=== PATIENT | male | born 1945 ===

== ENCOUNTER 2017-01-12 21:53 | Emergency (ER) | payer MEDICARE, BC ==
--- NOTE | 2017-01-12 22:34 | C.PDOC ---
History Of Present Illness Patient is a 71 year old male who presents to the ER with a complaint of pain, swelling and redness to the right testicle for the past 3 days. Patient denies trauma, trouble passing urine, fever, chills or abdominal pain. Time Seen by Provider: 01/12/17 22:17 Chief Complaint (Nursing): Male Genitourinary History Per: Patient History/Exam Limitations: no limitations Onset/Duration Of Symptoms: Days (3) Current Symptoms Are (Timing): Still Present Quality Of Discomfort: Unable To Describe Associated Symptoms: Other (Redness, Swelling. No abdominal pain.). denies: Fever, Chills, Urinary Symptoms Alleviating Factors: None Recent travel outside of the [place]: No Past Medical History Reviewed: Historical Data, Nursing Documentation, Vital Signs Vital Signs: Last Vital Signs Temp 98.4 F 01/12/17 22:04 Pulse 97 H 01/12/17 22:04 Resp 16 01/12/17 22:04 BP 122/79 01/12/17 22:04 Pulse Ox 97 01/12/17 23:06 - Medical History PMH: Kidney Stones Surgical History: No Surg Hx Family History: States: Unknown Family Hx - Social History Hx Alcohol Use: Yes Hx Substance Use: Yes - Immunization History Hx Tetanus Toxoid Vaccination: No Hx Influenza Vaccination: No Hx Pneumococcal Vaccination: No Review Of Systems Constitutional: Negative for: Fever, Chills Gastrointestinal: Negative for: Abdominal Pain Genitourinary: Positive for: Scrotal Pain (Right tesicular pain, redness, swelling). Negative for: Other (Trouble passing urine) Physical Exam - Physical Exam Appears: Non-toxic Skin: Normal Color, Warm, Dry Head: Atraumatic, Normacephalic Oral Mucosa: Moist Chest: Symmetrical, No Tenderness Cardiovascular: Rhythm Regular, No Murmur Respiratory: Normal Breath Sounds, No Rales, No Rhonchi, No Wheezing Gastrointestinal/Abdominal: Soft, No Tenderness Male Genital: Testicular Tenderness (Right), Testicular Swelling (Right), No Circumcised, Other (Scrotum inflamed) Neurological/Psych: Oriented x3, Normal Speech, Normal Cognition ED Course And Treatment - Laboratory Results Result Diagrams: 01/12/17 22:53 Lab Interpretation: No Acute Changes O2 Sat by Pulse Oximetry: 97 (Room air) Pulse Ox Interpretation: Normal - CT Scan/US Testicular US Other Rad Studies (CT/US): Read By Radiologist, Radiology Report Reviewed CT/US Interpretation: EXAM: US Scrotum. CLINICAL HISTORY: 71 years old, male ; Pain; Scrotum pain; Additional info: Right testicular pain and swelling. TECHNIQUE: Real-time ultrasound of the scrotum with color Doppler and image documentation. COMPARISON: No relevant prior studies available. FINDINGS: Right testicle: The right testicle is increased in vascularity and unremarkable in size measuring 3.5 x. 2.3 x 2.7 cm. Complex free fluid is identified surrounding the right testicle, consistent with a moderate. hydrocele. Left testicle: Unremarkable in echogenicity and size measuring 3.5 x 1.7 x 1.7 cm. No mass. No. torsion. Epididymides: The right epididymis is increased in vascularity and size measuring 19 x 12 x 14 mm. The left epididymis is normal. Scrotum: Unremarkable. IMPRESSION: Findings suggesting right-sided epididymoorchitis, as detailed above. A moderate right-sided. hydrocele is also noted. Progress Note: Blood work, urinalysis and testicular US ordered. Reevaluation Time: 23:46 Reassessment Condition: Improved Disposition Counseled Patient/Family Regarding: Studies Performed, Diagnosis, Need For Followup, Rx Given - Disposition Referrals: [facility] [Outside] Disposition: HOME/ ROUTINE Disposition Time: 23:48 Condition: STABLE Prescriptions: Ibuprofen [Motrin Tab] 600 mg PO QID PRN #30 tab PRN Reason: Pain, Moderate (4-7) Sulfamethoxazole/Trimethoprim [Bactrim DS 800 mg-160 mg] 1 tab PO BID #14 tab Instructions: Epididymitis (ED) - Clinical Impression Clinical Impression: Epididymitis - Scribe Statement The provider has reviewed the documentation as recorded by the Danniibmartha Mathew All medical record entries made by the Dewayne were at my direction and personally dictated by me. I have reviewed the chart and agree that the record accurately reflects my personal performance of the history, physical exam, medical decision making, and the department course for this patient. I have also personally directed, reviewed, and agree with the discharge instructions and disposition.
[2017-01-12 22:56] LABS: BASO # 0.1 K/uL (0.0-0.2); BASO % 0.5 % (0.0-2.0); EOS # 0.5 K/uL (0.0-0.7); EOS % 4.7 % (0.0-4.0); HEMATOCRIT 39.1 % (35.0-51.0); LYMPH # 2.1 K/uL (1.0-4.3); LYMPH % 22.3 % (20.0-40.0); MEAN CELL VOLUME 91.5 fL (80.0-94.0); MEAN CORPUSCULAR HEMOGLOBIN 30.3 pg (27.0-31.0); MEAN CORPUSCULAR HGB CONC 33.1 g/dL (33.0-37.0); MEAN PLATELET VOLUME 8.6 fL (7.2-11.7); MONO # 1.4 K/uL (0.0-0.8); MONO % 14.5 % (0.0-10.0); NRBC % 0.1 % (0.0-2.0); RED CELL DISTRIBUTION WIDTH 14.7 % (11.5-14.5); WHITE BLOOD COUNT 9.6 K/uL (4.8-10.8)
[2017-01-12] MEDS ORDERED: Tmp-Smz 800 mg-160 mg DS Tab PO SCH (23:00)
[2017-01-12 23:03] LABS: RBC URINE < 1 /hpf (0-3); URINE BACTERIA OCC (<OCC); URINE BILIRUBIN NEGATIVE (NEGATIVE); URINE BLOOD NEGATIVE (NEGATIVE); URINE COLOR Yellow (YELLOW); URINE GLUCOSE (UA) NORMAL (Normal); URINE KETONE NEGATIVE (NEGATIVE); URINE LEUKOCYTE ESTERASE TRACE Leu/uL (Negative); URINE PROTEIN NEGATIVE (NEGATIVE); WBC URINE 6 /hpf (0-5)
--- NOTE | 2017-01-12 23:03 | US ---
EXAM: US Scrotum CLINICAL HISTORY: 71 years old, male; Pain; Scrotum pain; Additional info: Right testicular pain and swelling TECHNIQUE: Real-time ultrasound of the scrotum with color Doppler and image documentation. COMPARISON: No relevant prior studies available. FINDINGS: Right testicle: The right testicle is increased in vascularity and unremarkable in size measuring 3.5 x 2.3 x 2.7 cm. Complex free fluid is identified surrounding the right testicle, consistent with a moderate hydrocele. Left testicle: Unremarkable in echogenicity and size measuring 3.5 x 1.7 x 1.7 cm. No mass. No torsion. Epididymides: The right epididymis is increased in vascularity and size measuring 19 x 12 x 14 mm. The left epididymis is normal. Scrotum: Unremarkable. IMPRESSION: Findings suggesting right-sided epididymoorchitis, as detailed above. A moderate right-sided hydrocele is also noted.
[2017-01-12] MEDS ORDERED: Tmp-Smz 800 mg-160 mg DS Tab ONE (23:11)
[2017-01-13 00:41] VITALS: BP 132/66; PULSE 84; RESP 20; TEMP 98.9; O2SAT 98
[2017-01-13 01:16] LABS: CHLORIDE 110 mmol/L (98-107)
[2017-01-13 01:17] LABS: POTASSIUM 4.2 mmol/L (3.6-5.2); SODIUM 143 mmol/L (132-148)
[2017-01-13 01:19] LABS: ALB/GLOB RATIO 1.2 (1.0-2.1); ALKALINE PHOSPHATASE 65 U/L (38-126); AST/SGOT 28 U/L (17-59); BILIRUBIN,TOTAL 0.7 mg/dL (0.2-1.3); BLOOD UREA NITROGEN 21 mg/dL (9-20); CARBON DIOXIDE 24 mmol/L (22-30); GFR AFRICAN-AMERICAN > 60; GLUCOSE,RANDOM 109 mg/dL (75-110); TOTAL PROTEIN 7.1 g/dL (6.3-8.3)
[2017-01-13 01:20] LABS: ALT/SGPT 26 U/L (21-72); CALCIUM 8.9 mg/dl (8.6-10.4)
== END 2017-01-13 00:41 | disposition home or self-care (01) ==
LOC: C.ER 21:53
DX: N45.1 Epididymitis (principal)